=== PATIENT | male | born 1980 | race Caucasian/White ===

== ENCOUNTER 2018-03-02 20:21 | Emergency (ER) | payer MEDICAID, SELFPAY ==
[2017-04-14 13:39] VITALS: BMI 23.2
[2018-03-02 20:22] VITALS: BP 111/61; PULSE 77; RESP 18; TEMP 36.7; O2SAT 98; BMI 25.9
[2018-03-02 20:30] VITALS: BP 109/64; PULSE 75; RESP 13; O2SAT 97
--- NOTE | 2018-03-02 20:53 | RAD_ITS ---
STUDY: X-RAY CHEST REASON FOR EXAM: Male, 37 years old. Numbness TECHNIQUE: A P COMPARISON: April 14, 2017 FINDINGS: The lungs are clear and expanded. There is no demonstrated pleural abnormality. Normal size heart. Normal mediastinum and karely. Normal visualized pulmonary arteries. Normal visualized aortic arch and descending thoracic aorta. There are diffuse degenerative changes of the visualized thoracic spine. Normal visualized ribs, clavicles, and shoulders. There is no demonstrated abnormality of the visualized soft tissue structures of the upper abdomen. RAD/Chest 1 View (Portable) IMPRESSION: No acute cardiopulmonary process. Electronically Signed: Donna Owens MD at 21:20 EDT Tel , Service support ,
--- NOTE | 2018-03-02 21:11 | ED.RN ---
PT INFORMED TO PROVIDE URINE SAMPLE. BEVERAGE GIVEN. ROOM-MATE AT BEDSIDE.
[2018-03-02 21:17] LABS: Absolute Lymphocyte Count 2.06 X10^3/ul (0.83-4.51); Absolute Neutrophil Count 7.9 X10^3/uL (2.0-7.7); Basophil# 0.03 X10^3/uL; Basophil% 0.3 % (0-1); Eosinophils% 0.9 % (0-5); Hematocrit 41.3 % (40-54); Hemoglobin 14.3 g/dl (13.0-16.5); Lymphocyte # 2.06 X10^3/ul (4.0); Lymphocyte % 19.4 % (19-41); Mean Corp Hgb Conc 34.6 g/gl (32-36); Mean Corpuscular Hgb 30.2 pg (27.0-32.0); Mean Corpuscular Volume 87.3 fL (80-94); Mean Platelet Vol. 9.2 fl (6.2-12.0); Monocyte# 0.49 X10^3/uL; Monocyte% 4.6 % (0-10); Neutrophil # 7.91 X10^3/uL (2.7-7.7); Neutrophil % 74.5 % (47-70); POSITIVE COUNT NO; POSITIVE DIFFERENTIAL NO; POSITIVE MORPHOLOGY NO; Platelet Count 281 K/mm3 (150-450); RBC Distribution Width SD 44.7 fl (35.1-43.9); Red Blood Count 4.73 M/mm3 (4.6-6.2); White Blood Count 10.6 K/mm3 (4.4-11.0)
[2018-03-02 21:34] LABS: ALB/GLOB Ratio 1.1 RATIO (0.9-2.4); AST(SGOT) 12 U/L (15-37); Alanine Aminotransfer ALT/SGPT 24 U/L (16-61); Albumin, Serum 3.9 g/dL (3.2-5.0); Alkaline Phosphatase 86 U/L (45-117); Anion Gap 10 (5-15); BUN 8 mg/dL (7-18); BUN/Creat Ratio 8.9 RATIO (10-20); Calcium,Total 8.2 mg/dL (8.5-10.1); Chloride 110 mmol/L (98-107); EST Glomerular Filtration Rate 100 mL/min (>60); Est Glom Filt Rate - Afr Amer 121 mL/min (>60); Estimated Creatinine Clearance 90.44 ml/min; Globulin 3.6 g/dL (2.2-4.2); Glucose 93 mg/dL (74-106); Lipase 143 U/L (73-393); Potassium 3.5 mmol/L (3.5-5.1); Protein, Total 7.5 g/dL (6.4-8.2); Sodium Level 142 mmol/L (136-145)
[2018-03-02 21:46] LABS: Bacteria 0 SEEN /hpf (None Seen); Mucous, Urine 0 SEEN /hpf (<or=2+); Red Blood Cells-Urine 0 SEEN /hpf (0-5); White Blood Cells 0 SEEN /hpf (0-5)
[2018-03-02 22:00] LABS: Color, Urine Straw (Yellow); Glucose, Dipstick Normal (Normal); Ketone-Dipstick Negative (Negative); Leukocyte Esterase-Dipstick Negative /ul (Negative); Nitrite-Dipstick Negative (Negative); Occult Blood-Urine Negative /ul (Negative); Protein-Dipstick Negative (Negative); Urine Bilirubin Dipstick Negative (Negative); Urine Clarity Clear (Clear); Urine Urobilinogen Normal (Normal)
[2018-03-02 22:26] LABS: Squamous Epithelial Cells - UA 0-5 SEEN /hpf (0-5)
[2018-03-02 22:29] LABS: Amphetamine Urine VISTA NEGATIVE (<1000 ng/mL); Barbiturate Urine VISTA NEGATIVE (< 200 ng/mL); Benzodiazepine Urine VISTA NEGATIVE (< 200 ng/mL); Cocaine Urine VISTA NEGATIVE (< 300 ng/mL); Ecstacy Urine VISTA NEGATIVE (< 500 ng/mL); Methadone Urine VISTA NEGATIVE (< 300 ng/mL); PCP Urine VISTA NEGATIVE (< 25 ng/mL); THC Urine VISTA NEGATIVE (< 50 ng/mL); Vista UDS pH Range 5
[2018-03-02 23:10] VITALS: BP 112/75; PULSE 78; RESP 14; O2SAT 99
--- NOTE | 2018-03-02 23:36 | ED.DCSUM_ITS ---
- ER Visit Summary Date of Service: 03/02/18 Chief Complaint: Altered mental status History of Present Illness: The patient is a 37 M who has a history of coronary artery disease and had a stent placed April 2017. She reportedly has been drinking today. When family came home he stated that he was in and out of it. They noted that he was very sweaty. He seemed to be falling asleep quite easily and they would have to slap him awake. He denies any palpitations or chest pain. No shortness of breath. Did note some paresthesias of the upper extremities. He is a smoker. He denies any drug use. Physical Examination: Afebrile vital signs are stable Gen: Well-nourished well-developed Head: Normocephalic atraumatic Eyes: Perrl EOMI pupils are 3 mm bilaterally ENT: TMs clear no rhinorrhea moist mucous membranes Neck: Supple no lymphadenopathy no JVD nontender CVS: Regular rate rhythm no murmurs normal S1-S2 Respiratory: No distress clear to auscultation bilaterally chest nontender Abdomen: Soft nontender nondistended normal bowel sounds no masses Back: Nontender Extremity: Nontender no edema Skin: Normal color no rash Neuro: alert orientated ?3 CN II-XII intact normal strength sensation reflexes gait cerebellar Psych: Normal affect normal mood Test Results: EKG shows a sinus rhythm at a rate of 74. Chest x-ray negative. CBC chemistries troponin negative. Alcohol level is 179. Urine drugs abuse is negative. Emergency Department Course and Treatment: Patient was observed in the department's had no beds on the monitor. Second troponin is negative. I do not have a clear etiology for the patient's altered mental status other than alcohol. This does not appear cardiac in nature. Patient will be discharged home instructions to abstain from alcohol and smoking cessation. Return if worsening or concerns. Impression: 1. Alcohol intoxication 2. Altered mental status This note was generated with [employer] dictation software. It may contain incorrect words, spelling, and punctuation that were not noted in review of the chart prior to signing ED Disposition - Plan for ED Patient: Disposition: Home or Assisted Living Chief Complaint: Numb/Ting Instructions: ED Alcohol Intoxication Referrals: Brook Resendez MD [STAFF PHYSICIAN] - 5-7 Days
[2018-03-03 00:07] VITALS: BP 103/69; PULSE 78; RESP 20; O2SAT 97
== END 2018-03-03 00:16 | disposition home or self-care (01) ==
PROVIDERS: Emergency Provider Emergency Medicine
DX: F10.129 Alcohol abuse with intoxication, unspecified (principal); Y90.6 Blood alcohol level of 120-199 mg/100 ml; R41.82 Altered mental status, unspecified; I25.10 Atherosclerotic heart disease of native coronary artery without angina pectoris; I25.2 Old myocardial infarction; F17.200 Nicotine dependence, unspecified, uncomplicated; Z95.5 Presence of coronary angioplasty implant and graft; Z79.82 Long term (current) use of aspirin; Z79.899 Other long term (current) drug therapy
CPT/HCPCS: 71045; 80053; 80307; 80320; 81001; 83690; 84484; 85025; 93005; 99285; A4216; G0480

== ENCOUNTER 2018-03-14 00:50 | Emergency (ER) | payer MEDICAID, SELFPAY ==
[2017-04-14 13:39] VITALS: BMI 23.2
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
--- NOTE | 2018-03-14 00:50 | DT_ITS ---
This patient was seen during an EMR downtime March 08, 2018 - March 15, 2018. This patient may have a combination of paper and electronic documentation or all paper documentation. All documentation is viewable within the e-chart portion of [facility] for each patient visit.
== END 2018-03-14 07:30 | disposition home or self-care (01) ==
LOC: ED 19:07
PROVIDERS: Emergency Provider Emergency Medicine
DX: S00.83XA Contusion of other part of head, initial encounter (principal); S00.81XA Abrasion of other part of head, initial encounter; X58.XXXA Exposure to other specified factors, initial encounter; Y93.9 Activity, unspecified; Y92.9 Unspecified place or not applicable; F10.129 Alcohol abuse with intoxication, unspecified; Y90.9 Presence of alcohol in blood, level not specified; Z23 Encounter for immunization; I25.10 Atherosclerotic heart disease of native coronary artery without angina pectoris; I25.2 Old myocardial infarction; Z95.5 Presence of coronary angioplasty implant and graft; F17.200 Nicotine dependence, unspecified, uncomplicated; Z79.82 Long term (current) use of aspirin; Z79.899 Other long term (current) drug therapy
CPT/HCPCS: 36415; 70450; 80320; 90471; 90715; 99282; G0480

== ENCOUNTER 2020-08-16 22:20 | Emergency (ER) | payer MEDICAID, SELFPAY ==
[2017-04-14 13:39] VITALS: BMI 23.2
[2020-08-16 22:20] VITALS: BP 156/87; PULSE 108; RESP 16; TEMP 36.3; O2SAT 97; BMI 25.9
--- NOTE | 2020-08-16 22:45 | ED.DCSUM_ITS ---
History of Present Illness Chief Complaint: Back Detail of Chief Complaint: back pain/sciatica, groin pain Informant: Patient Onset: Days - 2 Context: Sudden Onset - when sat up from lying position on couch Timing: Continuous Quality: Aching Location: - - R groin, going into medial thigh Current Severity: Moderate Maximum Severity: Severe Worsened by: improves with: Movement - certain movements/positions, especially going up steps Relieved by: Remaining Still Associated Symptoms: Radiation to Right Leg, - - No bowel or bladder dysfunction. No numbness or saddle anesthesia. Able to ambulate. No fever/chills. Narrative: Patient presents with right groin pain that has been there for 2 days, also an exacerbation of his chronic low back pain that has been an issue for the last 3 months plus, he had an MRI in [place] that he states showed an L5-S1 disc herniation causing sciatica down his right lower extremity. Those symptoms are present, a little worse than usual, but otherwise unchanged. He was put on a s teroid taper in [place] that helped transiently but since they finished he has gradually become worse over the last week or 2. Specifically states that they gave him morphine and it did nothing, and then a separate visit he was given Dilaudid which did help. He walked from [facility] to here with a cane to be seen tonight. He states he did not have any issues but it took a while. - Past Medical History (1) NSTEMI (non-ST elevated myocardial infarction) Status: Chronic Past Medical History - Allergies and Home Meds Allergies/Adverse Reactions: Allergies No Known Allergies Allergy (Verified 08/16/20 22:22) Primary Care Physician: Care Physician,No Primary [Primary Care Provider] - Surgical History: no surgical history Smoking Status: Current every day smoker - Family History Paternal Family History: Reports: Heart Disease Sibling Family History: Reports: Heart Disease Review of Systems General: Denies: Chills, Fever, Sweats Gastrointestinal: Denies: Abdominal pain, Nausea, Vomiting, Diarrhea, Melena, Hematochezia Musculoskeletal: Reports: Back pain, Extremity Pain. Denies: Myalgias, Swelling Skin: Denies: Rash, Wounds Neurological: Denies: Headache, Weakness, Numbness Physical Exam Vital Signs/Narrative: Vital Signs Temp Pulse Resp BP Pulse Ox 08/16/20 22:20 97.4 F L 108 H 16 156/87 H 97 Inital Vital Signs reviewed: Yes General: Well nourished, Well developed, - - Well-appearing no distress Head: Normocephalic, Atraumatic Respiratory: No distress Abdomen: Soft, Nontender, Nondistended, Normal bowel sounds Back: Normal Inspection, Paraspinal Tenderness - Right side along pelvic brim. Negative for: Spinal tenderness, CVA tenderness Extremeties: No edema, - - Tender specifically at his biceps femoris tendon origin in the right groin. Easy internal/external rotation passively of the right hip, which increases pain at the tendinous structure. No bony tenderness. No inguinal lymphadenopathy. All thigh compartments soft and nontender. Skin: Normal color, No rash, No Trauma Neuro: Alert, Oriented, Normal Strength, Normal Sensation, Normal DTR, Normal Gait - With cane, no distress or apparent gross issues Psychological: Normal affect, Normal Mood Diagnostic/Tx/Re-eval - Medical Decision Making Check an oars report. He has had 2 prescriptions for tramadol 2 months ago and nothing else. Given another 1, as well as Naprosyn which will help the groin muscle strain, he has no testicular pain or symptoms of a kidney stone. No urinary symptoms. Do not he needs further work-up here. Given tramadol and an injection of Toradol here in ER prior to discharge, I do not think he needs morphine or Dilaudid for this pain. ED Disposition - Plan for ED Patient: Disposition: Home or Assisted Living Diagnosis: Acute exacerbation of chronic low back pain, Strain of right groin Instructions: ED Back Pain Acute or Chronic, ED Strain Groin Prescriptions: Naproxen [Naprosyn] 500 mg PO BID PRN #20 tab Prescription Printed traMADol [Ultram] 50 mg PO Q4H PRN PRN 3 Days #20 tab PRN Reason: Pain Prescription Printed Referrals: Rene Roque DO [STAFF PHYSICIAN] - (call for appt and bring your MRI results)
[2020-08-16] MEDS: traMADol 50 MG Tablet PO (23:01)
[2020-08-16] MEDS: Ketorolac 60 MG/2 ML Vial IM (23:01)
== END 2020-08-16 23:31 | disposition home or self-care (01) ==
PROVIDERS: Emergency Provider Emergency Medicine
DX: S39.011A Strain of muscle, fascia and tendon of abdomen, initial encounter (principal); X58.XXXA Exposure to other specified factors, initial encounter; Y93.9 Activity, unspecified; Y92.9 Unspecified place or not applicable; Y99.9 Unspecified external cause status; M54.5 Low back pain; R10.31 Right lower quadrant pain; G89.29 Other chronic pain; F17.200 Nicotine dependence, unspecified, uncomplicated; Z79.02 Long term (current) use of antithrombotics/antiplatelets; Z79.82 Long term (current) use of aspirin; Z79.899 Other long term (current) drug therapy; I25.2 Old myocardial infarction
CPT/HCPCS: 96372; 99283